=== PATIENT | female | born 1990 | race Caucasian/White ===

== ENCOUNTER 2018-06-08 09:43 | Emergency (ER) | payer BC ==
[2018-06-08] MEDS ORDERED: NS 1,000 ML IV ONE (09:56)
[2018-06-08] MEDS ORDERED: LORazepam 2 MG/ML INJ IVP ONE (09:57)
--- NOTE | 2018-06-08 10:12 | EDPHY ---
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 Patient reports that she has a diagnosis of TMJ dysfunction and wears a mouth guard at night. Patient reports that she believes that her night mouth guard is ill-fitting and caused her current episode of TMJ dysfunction. She went to [facility] on Saturday and was given Flexeril and Valium without relief of her symptoms. She reports that she has been eating only soup for the last 5 days and still able to drink liquids. She is requesting"a full workup including imaging" and a referral for ENT within the area. Patient denies any jaw popping or clicking, ear pain or popping, headache. She describes moderate, non radiating left TMJ pain. Modifying Factors: Flexeril and Valium with mild transient relief Comment: ROS: A comprehensive 10 system review of systems is otherwise negative aside from elements mentioned in the history of present illness. MEDICAL/SURGICAL/SOCIAL HISTORY: Medical history: Generally healthy. Does not take any regular medications. Currently on menses. Surgical history: Denies Social history: Currently in a relationship. student career development specialist at [employer]. CONSTITUTIONAL: Nontoxic-appearing is anxious young adult white female, significant other at bedside, awake and alert, no obvious distress HEENT: Atraumatic and normocephalic. Oropharynx clear, no exudate and moist pink mucosa. No malocclusion. no dental trauma. Airway patent. No lymphadenopathy. Able to open mouth 1 and half finger widths. No tenderness with TMJ palpation. NECK: supple, no midline tenderness, flexion 45 degrees, extension 45 degrees, right and left lateral flexion 45 degrees. No meningismus. Cardiovascular: Normal S1/S2, regular rate, regular rhythm, without murmur rub or gallop. PULMONARY/CHEST: Symmetrical and nontender. no crepitus. Clear to auscultation bilaterally. Good air movement. No accessory muscle usage. ABDOMEN: Soft, nondistended, nontender. EXTREMITIES: 2/2 pulses, strength 5/5, Good light touch sensation. no deformities, no clubbing, no cyanosis or edema. NEUROLOGICAL: no focal neuro deficits. GCS 15. Light touch sensation intact. Speech is normal. SKIN: Warm and dry, no erythema. no rash. Good capillary refill. Source: Patient Exam Limitations: No limitations - Personal History LMP (Females 10-55): Now Current Tetanus/Diphtheria Vaccine: Yes Current Tetanus Diphtheria and Acellular Pertussis (TDAP): Yes Tetanus Vaccine Date: < 10 years - Medical/Surgical History Hx Asthma: No Hx Chronic Respiratory Disease: No Hx Diabetes: No Hx Cardiac Disease: No Hx Renal Disease: No Hx Cirrhosis: No Hx Alcoholism: No Hx HIV/AIDS: No Hx Splenectomy or Spleen Trauma: No Other PMH: TMJ - Social History Smoking Status: Never smoked Constitutional: Initial Vital Signs Temperature (C) 37.3 C 06/08/18 09:47 Heart Rate 87 06/08/18 09:47 Respiratory Rate 18 06/08/18 09:47 Blood Pressure 116/74 06/08/18 09:47 O2 Sat (%) 96 06/08/18 09:47 O2 Delivery Mode Room Air Allergies/Adverse Reactions: No Known Allergies Allergy (Unverified 06/08/18 09:46) Home Medications: Medication Instructions Recorded Control 06/08/18 Flexeril 10 MG (*) 06/08/18 LORazepam [Ativan 2 mg tab] 1 - 2 mg PO Q8 PRN #10 tablet 06/08/18 Valium 06/08/18 oxyCODONE/APAP 5/325 [Percocet 1 - 2 tab PO Q4H PRN #10 tab 06/08/18 5/325 (*)] predniSONE 06/08/18 Medical Decision Making - Diagnostics Imaging Results: Imaging Impressions Face CT 06/08/18 09:57 Impression: Normal CT evaluation. If there is further clinical concern regarding TMJ meniscocapsular pathology, dedicated MR imaging could be scheduled. Findings were discussed with Aminta Samuels PA-C at 11:06, on 06/08/2018. ED Course/Re-evaluation: Vital signs reviewed and stable upon arrival. Labs, IV fluids, IV medications, CT maxillofacial scan ordered Patient given 1 L normal saline, IV Toradol 30 mg and IV Ativan 1 mg 1039: Labs reviewed. No signs of leukocytosis/anemia/platelet dysfunction/ANJEL/ electrolyte imbalance/. Called by radiologist, Dr. Garcia, who advises that CT maxillofacial scan shows no sinus disease, no TMJ acute process, no mandible fracture Reassessed patient who reports increased opening of her jaw and less pain. Physical exam shows 2 finger with mouth opening. Passed p.o. Trial prior to discharge. Oral surgery referral along with prescription for Ativan and Percocet This patient was seen under the supervision of my secondary supervising physician. I evaluated care for this patient independently. Discussed this patient with Dr. Love. Differential Diagnosis: Differential diagnosis includes but is not limited to TMJ dysfunction, malocclusion, anxiety, acute Tetanus, conversion disorder, mandibular dislocation, seizure disorder, torticollis. - Data Points Laboratory Results: Laboratory Results 06/08/18 10:00 06/08/18 10:00 06/08/18 06/08/18 06/08/18 10:00 10:00 10:00 WBC 6.66 10^3/uL 10^3/uL (3.80-9.50) RBC 4.35 10^6/uL 10^6/uL (4.18-5.33) Hgb 13.4 g/dL g/dL (12.6-16.3) Hct 38.3 % % (38.0-47.0) MCV 88.0 fL fL (81.5-99.8) MCH 30.8 pg pg (27.9-34.1) MCHC 35.0 g/dL g/dL (32.4-36.7) RDW 12.7 % % (11.5-15.2) Plt Count 215 10^3/uL 10^3/uL (150-400) MPV 9.9 fL fL (8.7-11.7) Neut % (Auto) 71.4 % % (39.3-74.2) Lymph % (Auto) 22.4 % % (15.0-45.0) [place] % (Auto) 4.2 % L % (4.5-13.0) Eos % (Auto) 1.1 % % (0.6-7.6) Baso % (Auto) 0.6 % % (0.3-1.7) Nucleat RBC Rel Count 0.0 % % (0.0-0.2) Absolute Neuts (auto) 4.76 10^3/uL 10^3/uL (1.70-6.50) Absolute Lymphs (auto) 1.49 10^3/uL 10^3/uL (1.00-3.00) Absolute Monos (auto) 0.28 10^3/uL L 10^3/uL (0.30-0.80) Absolute Eos (auto) 0.07 10^3/uL 10^3/uL (0.03-0.40) Absolute Basos (auto) 0.04 10^3/uL 10^3/uL (0.02-0.10) Absolute Nucleated RBC 0.00 10^3/uL 10^3/uL (0-0.01) Immature Gran % 0.3 % % (0.0-1.1) Immature Gran # 0.02 10^3/uL 10^3/uL (0.00-0.10) Sodium 143 mEq/L mEq/L (135-145) Potassium 3.5 mEq/L mEq/L (3.3-5.0) Chloride 106 mEq/L mEq/L (97-110) Carbon Dioxide 24 mEq/l mEq/l (22-31) Anion Gap 13 mEq/L mEq/L (8-16) BUN 12 mg/dL mg/dL (7-23) Creatinine 0.7 mg/dL mg/dL (0.6-1.0) Estimated GFR > 60 Glucose 93 mg/dL mg/dL (70-100) Calcium 10.0 mg/dL mg/dL (8.5-10.4) Beta HCG, Qual NEGATIVE Medications Given: Discontinued Medications Sodium Chloride (Ns) 1,000 mls @ 0 mls/hr IV ONCE ONE; Wide Open PRN Reason: Protocol Stop: 06/08/18 09:57 Last Admin: 06/08/18 10:26 Dose: 1,000 mls Ketorolac Tromethamine (Toradol) 30 mg IVP EDNOW ONE Stop: 06/08/18 10:14 Last Admin: 06/08/18 10:27 Dose: 30 mg Lorazepam (Ativan Injection) 1 mg IVP EDNOW ONE Stop: 06/08/18 09:58 Last Admin: 06/08/18 10:27 Dose: 1 mg Departure - Departure Disposition: Home, Routine, Self-Care 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 Eat a soft diet for the next 48 hours and then slowly advance as tolerated. Follow-Up with Oral surgery and ENT: Follow up sooner if your condition worsens or if you develop any new problems Call as soon as possible for an appointment. Be clear when you call for an appointment that this is an Emergency Department follow-up. Contact the Emergency Department if you are having trouble arranging follow up care. Our referrals are not based on your insurance network. When time allows, contact your insurance carrier to verify the referral physician is in your plan. If not, get a referral for an in-senior network systems engineer. Please ask us if you have any questions. Referrals: Kendy Moreira DDS [Doctor of Dental Surgery] - As per Instructions Ambar Brush MD [Medical Doctor] - As per Instructions Prescriptions: LORazepam [Ativan 2 mg tab] 1 - 2 mg PO Q8 PRN #10 tablet PRN Reason: Spasms oxyCODONE/APAP 5/325 [Percocet 5/325 (*)] 1 - 2 tab PO Q4H PRN #10 tab PRN Reason: Pain, Severe
[2018-06-08] MEDS ORDERED: KETOROLAC 30 MG/1 ML SDV IVP ONE (10:13)
[2018-06-08 10:25] LABS: PLATELET COUNT 215 10^3/uL (150-400)
[2018-06-08 11:31] VITALS: BP 116/56
== END 2018-06-08 11:40 | disposition home or self-care (01) ==
DX: M26.603 Bilateral temporomandibular joint disorder, unspecified (principal); E86.9 Volume depletion, unspecified
CPT/HCPCS: 96374; J1885; J2060